=== PATIENT | male | born 1980 | race Caucasian/White ===

== ENCOUNTER → 2019-04-30 | Outpatient (CLI) | payer MEDICARE, MEDICAID ==
--- NOTE | 2019-04-30 09:27 | PCVCIMAG ---
EXAM: VENOUS DUPLEX LEFT LEG INDICATION: Leg pain and swelling. FINDINGS: Left leg: No thrombus in the common femoral or mid or upper main femoral veins. Moderate nonocclusive thrombus lower main femoral vein and throughout the popliteal vein with mild nonocclusive thrombus upper calf veins. Profunda femoral vein is patent. IMPRESSION: Left leg deep venous thrombosis as reviewed above similar to recent outside study from March 2019. LOC:[id number]
== END | disposition home or self-care (01) ==
LOC: PCVCIMAG 07:31
PROVIDERS: ATTEND Family Medicine
DX: I82.402 Acute embolism and thrombosis of unspecified deep veins of left lower extremity (principal); F41.9 Anxiety disorder, unspecified; E66.9 Obesity, unspecified; F17.200 Nicotine dependence, unspecified, uncomplicated
CPT/HCPCS: 93971; G0463